=== PATIENT | female | born 1935 | race Caucasian/White ===

== ENCOUNTER 2019-01-05 07:55 | Emergency (ER) | payer BC, MEDICARE ==
[~2019-01-05] VITALS: Ht 157.5 cm; Wt 65.8 kg
[2019-01-05] MEDS ORDERED: SOLI5TAB2 PO (08:09)
[2019-01-05] MEDS ORDERED: ONDANSETRON HCL 4 MG/5 ML UDC ORAL SOL PO ONE (08:15)
[2019-01-05] MEDS ORDERED: ONDANSETRON HCL 4 MG/5 ML UDC ORAL SOL ONE (08:16)
--- NOTE | 2019-01-05 08:20 | NUR ---
Dr Capps at the bedside for MSE.
--- NOTE | 2019-01-05 08:27 | NUR ---
Pt out of ER for CT.
[2019-01-05 08:28] LABS: HEMATOCRIT 43.8 % (31.2-41.9); HEMOGLOBIN 14.2 g/dL (10.9-14.3); MEAN CORPUSCULAR HEMOGLOBIN 29.8 uug (24.7-32.8); MEAN CORPUSCULAR HGB CONC 33 g/dL (32.3-35.6); MEAN CORPUSCULAR VOLUME 91.8 fL (75.5-95.3); PLATELET COUNT (AUTO) 184 K/uL (179-408); RED BLOOD CELL COUNT(AUTO) 4.77 MIL/uL (3.63-4.92); WHITE BLOOD COUNT (AUTO) 20.8 K/uL (3.8-11.8)
[2019-01-05] MEDS ORDERED: IBUPROFEN 600 MG TABLET ONE (08:40)
[2019-01-05 08:41] LABS: *BILIRUBIN,URIN NEGATIVE (NEGATIVE); *BLOOD, URINE 2+ (NEGATIVE); *CLARITY,URINE CLEAR (CLEAR); *COLOR,URINE YELLOW (YELLOW); *KETONES,URINE NEGATIVE (NEGATIVE); *UROBILINOGEN,URINE 0.2 E.U./dl (NORMAL); LEUKOCYTE ESTERASE ,URINE NEGATIVE (NEGATIVE); NITRITE, URINE NEGATIVE (NEGATIVE); PH,URINE 5.5 (5.0-8.0); UGLUCOSE NEGATIVE (NEGATIVE)
[2019-01-05 08:41] LABS: CARBON DIOXIDE 24 mmol/L (21-32); CHLORIDE 109 mmol/L (98-107); CREATININE 1.1 mg/dL (0.6-1.3); GLUCOSE 99 mg/dL (74-106); UREA NITROGEN, BLOOD 20 mg/dL (7-18)
[2019-01-05] MEDS ORDERED: IBUPROFEN 600 MG TABLET PO ONE (08:45)
[2019-01-05 08:47] LABS: ALANINE AMINOTRANSFERASE 29 U/L (14-59); ALKALINE PHOSPHATASE 93 U/L (50-136); ASPARTATE AMINOTRANSFERASE 18 U/L (15-37); BILIRUBIN,DIRECT 0.1 mg/dL (0.0-0.2); BILIRUBIN,TOTAL 0.8 mg/dL (0.2-1.0); LIPASE 159 U/L (73-393); TOTAL PROTEIN, SERUM 7.2 g/dL (6.4-8.2)
[2019-01-05 08:50] LABS: RBC,URINE 20-50 /HPF (0-3); SQUAMOUS EPITHELIAL CELL,UR FEW /HPF (NONE SEEN); WBC,URINE 0-3 /HPF (0-3)
--- NOTE | 2019-01-05 09:00 | NUR ---
Pt back from Ct. C/O rt flank pain, made aware.
[2019-01-05 09:01] LABS: BASOPHILS % (MANUAL) 0 % (0-2); EOSINOPHILS % (MANUAL) 1 % (0-8); LYMPHOCYTES % (MANUAL) 25 % (20-40); MONOCYTES % (MANUAL) 4 % (2-10); NEUTROPHILS % (MANUAL) 26 % (42-75)
--- NOTE | 2019-01-05 09:30 | NUR ---
Pt states, her flank pain is better.
[2019-01-05 10:03] VITALS: BP 140/82
--- NOTE | 2019-01-05 10:03 | NUR ---
Patient discharged to home in stable conditon. Written and verbal after care instructions given. Patient verbalizes understanding of instructions.
== END 2019-01-05 10:04 | disposition home or self-care (01) ==
LOC: ER 07:55
DX: N20.0 Calculus of kidney (principal); Z88.0 Allergy status to penicillin; Z79.899 Other long term (current) drug therapy
CPT/HCPCS: 36415; 83690; 85025; A4663; Q0162

== ENCOUNTER 2023-10-08 11:14 | Emergency (ER) | payer MEDICARE, BC ==
[~2023-10-08] VITALS: Ht 157.5 cm; Wt 63.5 kg
[~2023-10-08 11:14] MED LIST: SOLI5TAB2 PO
[2023-10-08] MEDS ORDERED: HYDR25SU33 RC (12:01)
[2023-10-08 12:24] VITALS: BP 141/74; TEMP 98.3; O2SAT 98
== END 2023-10-08 12:25 | disposition home or self-care (01) ==
LOC: ER 11:14
DX: K64.9 Unspecified hemorrhoids (principal); E78.5 Hyperlipidemia, unspecified; Z79.899 Other long term (current) drug therapy; Z88.0 Allergy status to penicillin
CPT/HCPCS: A4606; A4663